=== PATIENT | male | born 1965 | race Caucasian/White ===

== ENCOUNTER → 2016-06-10 | Outpatient (CLI) | payer BC, OTHER ==
[~2016-06-10] MED LIST: ASPI325T32 PO; HYDR-3498 PO
--- NOTE | 2016-06-11 08:26 | RADRPT ---
PROCEDURE: XR AP pelvis/left hip. CLINICAL INDICATION: Hip pain TECHNIQUE: AP pelvis/lateral left hip view available for review. 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 There is normal mineralization, architecture and alignment. There is no evidence of loosening of th e prosthesis. No fractures, dislocation or osseous lesions are identified. The joints are unremark able. There are normal soft tissues. IMPRESSION: Bilateral total hip replacements. Otherwise unremarkable examination. RPTAT: [facility] .Jeff Olivares MD, MD Date Time Electronically viewed and signed by .Jeff Olivares MD, on 06/11/2016 08:26 .B/
== END | disposition home or self-care (01) ==
LOC: HKI 08:44
PROVIDERS: ATTEND Orthopaedic Surgery
DX: Z47.1 Aftercare following joint replacement surgery (principal); Z96.643 Presence of artificial hip joint, bilateral
CPT/HCPCS: 73502; G0463